=== PATIENT | female | born 1960 | race Caucasian/White ===

== ENCOUNTER 2016-11-10 11:44 | Emergency (ER) | payer OTHER ==
[2016-11-10 12:02] VITALS: BP 103/56; PULSE 66; RESP 16; TEMP 97.5; O2SAT 98
--- NOTE | 2016-11-10 14:22 | UCPHY ---
H & P Time Seen by Provider: 11/10/16 14:02 Patient Type: New HPI/ROS: 56-year-old female presents complaining of right eye redness and discharge that began last night. No change in vision, no fevers no chills. Review of systems General no fever no chills no weakness HEENT no eye pain positive eye discharge. Positive eye redness, no sore throat Respiratory no cough, no shortness of breath Cardiac no chest pain, no peripheral edema GI no abdominal pain, no diarrhea, no constipation, no nausea, no vomiting no flank pain, no hematuria, no dysuria Musculoskeletal no myalgias, no joint pain Heme no easy bruising, no easy bleeding Endo no polyuria, no polydipsia Skin no rashes, no pruritus Neuro no syncope, no dizziness, no headaches Psych is no suicidal ideation, no homicidal ideation Past Medical/Surgical History: Sinusitis Social History: Works full-time at [employer] Smoking Status: Never smoked Physical Exam: 56-year-old female alert and oriented in no acute distress nontoxic appearance afebrile Atraumatic normocephalic Extraocular muscles intact, anicteric Right eye positive conjunctival erythema, positive small amount of off-white discharge, fluorescein negative for uptake negative abrasion negative foreign body negative dendritic lesions Left eye normal conjunctiva Alert and oriented in no acute distress nontoxic appearance, afebrile Atraumatic normocephalic Neck no JVD Lungs clear to auscultation, no respiratory distress Heart regular rate and rhythm Extremities no cyanosis clubbing edema Constitutional: Initial Vital Signs Temperature (C) 36.4 C 11/10/16 12:00 Heart Rate 66 11/10/16 12:00 Respiratory Rate 16 11/10/16 12:00 Blood Pressure 103/56 L 11/10/16 12:00 O2 Sat (%) 98 11/10/16 12:00 O2 Delivery Mode Room Air Allergies/Adverse Reactions: tetracycline [Tetracycline] Allergy (Verified 11/10/16 11:58) Hives Home Medications: Medication Instructions Recorded GLUCOSAMINE HCL 500 mg PO 10/14/11 Mometasone Furoate Nasal [Nasonex] 2 sprays NASAL DAILY 10/14/11 Glen-3/Dha/Epa/Fish Oil [Fish Oil 1 each PO 10/14/11 1,000 mg EC Softgel] Ubidecarenone/Vitamin E Mixed 1 each PO 10/14/11 [Coq10 Sg 100 Softgel] Tobramycin 0.3% [Tobrex 0.3% opht 1 - 2 drops OP Q4 #1 opht.btl 11/10/16 drops (*)] Medical Decision Making ED Course/Re-evaluation: Patient seen and evaluated for right eye redness and discharge Fluorescein negative Physical exam significant for conjunctival erythema and off-white discharge Slit-lamp negative Impression Conjunctivitis Plan Tobramycin f/u pcp Departure - Departure Disposition: Home, Routine, Self-Care Clinical Impression: Conjunctivitis Condition: Good Instructions: Conjunctivitis (ED) Referrals: Kurt Boston MD [Primary Care Provider] - As per Instructions Prescriptions: Tobramycin 0.3% [Tobrex 0.3% opht drops (*)] 1 - 2 drops OP Q4 #1 opht.btl - PQRS PQRS Measurement: na
== END 2016-11-10 14:30 | disposition home or self-care (01) ==
LOC: CED 11:44
DX: H10.9 Unspecified conjunctivitis (principal)
CPT/HCPCS: 99203-PO; G0463-PO